=== PATIENT | female | born 1955 | race African-American/Black ===

== ENCOUNTER 2024-05-15 08:09 | Observation (INO) ==
--- NOTE | 2024-05-15 08:23 | Emergency Department Note ---
HPI - Chest Pain General Chief Complaint: Chest Pain Stated Complaint: chest pressure Time Seen by Provider: 05/15/24 08:18 Source: patient Mode of arrival: walk-in History of Present Illness HPI narrative: This is a 68 year old female patient that presents to the ER with c/o being diagnosed with COVID on 05/04/24 and has been on Levaquin and prednisone. Last night she states she started having chest pain. Patient denies any fever, chil ls, abdominal pain, SOB or N/V. Patient states she has a hx of blood clots. patient is not on blood thinners per patient and took ASA 81mg today complaint: Reports chest heaviness Onset (ago): hour(s) (24) Timing of current episode: Reports constant Onset: Reports during rest Pain location: Reports substernal Pain radiation: Reports none Severity: mild Quality: Reports tightness Relieving factors: Reports nothing Exacerbating factors: Reports nothing Context: Reports recent illness Associated symptoms: Reports cough Treatment prior to arrival: Reports none Risk Factors Coronary artery disease risk factors: Reports none Thoracic aortic dissection risk factors: Reports none Related Data Allergies Allergy/AdvReac Type Severity Reaction Status Date / Time hydralazine Allergy Mild Verified 05/15/24 08:23 morphine Allergy Unknown Verified 05/15/24 08:23 Review of Systems Status of ROS 10 or more systems reviewed and unremark able except as noted in history and below Constitutional Denies: fever, chills, change in weight, fatigue or malaise Eyes Denies: change in vision, blurry vision, blind spots, light sensitivity or eye discomfort Ears, nose, mouth, and throat Reports: nasal discharge and nasal congestion; Denies: throat pain, neck pain, throat swelling, difficulty swallowing or hoarseness Cardiovascular Reports: chest pain; Denies: palpitations, edema, swelling of feet/ankles, lightheadedness, shortness of breath with exertion or shortness of breath when lying down Respiratory Reports: cough; Denies: shortness of breath, wheezing, stridor, pain on inspiration or change in phlegm color Gastrointestinal Denies: abdominal pain, nausea, vomiting, coffee grounds in vomit, heartburn, diarrhea or constipation Genitourinary Denies: painful urination, urinary frequency, urinary urgency, urinary incontinence, blood in urine or difficulty voiding Musculoskeletal Denies: back pain, neck pain, extremity pain, extremity swelling, joint pain or limited range of motion Integumentary/Breast Denies: rash, itching, redness, skin pain, skin tenderness or skin swelling Neurological Denies: headache, numbness in extremities, weakness in extremities or lack of coordination Psychiatric Denies: anxiety, mood swings, panic attacks, change in sleep pattern or hopelessness Endocrine Denies: excessive urination, excessive thirst, fatigue or cold intolerance Hematologic/Lymphatic Denies: easy bruising, easy bleeding or enlarged lymph nodes Allergic/Immunologic Denies: hives, throat swelling or tongue swelling Exam Constitutional: normal general appearance and no apparent distress Vital Signs - 24 hr 05/15/24 08:15 05/15/24 08:54 05/15/24 09:03 Temperature 98.5 F Pulse Rate 88 81 Respiratory Rate 20 18 Blood Pressure 166/86 162/98 Pulse Oximetry 100 100 98 Oxygen Delivery Mt thod Room Air Room Air 05/15/24 09:57 Temperature Pulse Rate Respiratory Rate Blood Pressure 171/96 Pulse Oximetry Oxygen Delivery Mt thod HENMT: normocephalic, head/scalp atraumatic, hearing grossly normal bilaterally, external ears normal, nasal mucous membranes normal, external nose normal, oral mucous membranes normal and oropharynx normal nasal congestion Eyes: PERRL, EOMs intact bilaterally, conjunctivae normal and no scleral icterus Neck/C-Spine: visual inspection normal and trachea midline Lymph: no lymphadenopathy noted and no lymphedema noted Chest: inspection of chest normal Respiratory: breath sounds equal bilaterally, normal respiratory effort, clear to auscultation bilaterally, no wheezes, no rales, no retractions and no use of accessory muscles Cardiovascular: normal heart rate noted, regular rhythm noted, no gallop, no rub, no murmur, no JVD, no clicks, peripheral pulses 2+ throughout and no additional abnormal heart sounds Gastrointestinal: abdomen normal to inspection, abdomen soft to palpation, nontender to palpation, nontender to percussion, nondistended, normoactive bowel sounds, no hepatosplenomegaly, no masses, no pulsatile mass, no ascites and no hernia Genitourinary: no CVA tenderness Back/Pelvis: spine normal to inspection Extremities: normal to inspection, normal to palpation, no tenderness, full ROM, no joint enlargement and no deformity Neurology: no movement abnormality noted, no focal motor deficit noted, no sensory deficits noted, gait normal, speech normal, coordination normal, no pronator drift noted, no fasciculations noted and GCS normal Psychiatry: mental status grossly normal, oriented x3, thought process normal, cooperative, affect normal, psychomotor activity normal and memory normal Skin: skin color normal Course Course Hospital Course: 949: due to ongoing chest pain and risk factors will admit patient to the hospital for further evaluation and treatment Vital Signs Vital signs: Vital Signs Temperature 98.5 F 05/15/24 08:15 Pulse Rate 88 05/15/24 08:15 Respiratory Rate 20 05/15/24 08:15 Blood Pressure 166/86 05/15/24 08:15 Pulse Oximetry 100 05/15/24 08:15 Oxygen Delivery Method Room Air 05/15/24 08:15 Temperature 98.5 F 05/15/24 08:15 Pulse Rate 81 05/15/24 09:03 Respiratory Rate 18 05/15/24 09:03 Blood Pressure 171/96 05/15/24 09:57 Pulse Oximetry 98 05/15/24 09:03 Oxygen Delivery Method Room Air 05/15/24 08:54 MDM - Chest Pain Differential Diagnosis Differential diagnosis: Likely atypical chest pain Medical Records Data Attestation: I reviewed the patient's medical records. Lab Data Attestation: I reviewed the patient's lab results. Labs: Lab Results 05/15/24 Range/Units 08:45 WBC 4.6 (4.3-9.3) K/uL RBC 3.6 L (4.00-5.50) M/uL Hgb 10.7 L (12.5-15.8) gm/dL Hct 32.5 L (35.9-46.7) % MCV 89.7 (81.0-93.7) fl MCH 29.4 (27.6-32.2) pg MCHC 32.8 L (33.1-35.3) g/dl RDW 16.1 H (11.4-14.2) % Plt Count 422 H (152-353) K/uL MPV 7.6 (6.9-10.8) fl Gran % 54.6 (47.8-71.3) % Lymph % (Auto) 23.4 (20.0-43.0) % [place] % (Auto) 11.9 H (3.6-9.8) % Eos % (Auto) 9.0 H (0.4-2.8) % Baso % (Auto) 1.1 H (0.1-0.85) Lymph # (Auto) 1.1 (1.1-3.1) [place] # (Auto) 0.5 L (1.1-3.1) Eos # (Auto) 0.4 H (0.0-0.2) Baso # (Auto) 0.0 (0.0-0.1) Absolute Gran (auto) 2.5 (2.3-6.0) D-Dimer 577 (100-600) ng/mL Sodium 143 (136-145) mmol/L Potassium 4.3 (3.6-5.2) mmol/L Chloride 107.0 (98-107) mmol/L Carbon Dioxide 27 (21-32) mmol/L Anion Gap 9.0 (4-14) mEq/L BUN 21 H (7-18) mg/dL Creatinine 1.3 (0.6-1.3) mg/dL Estimated GFR 44.2 (>59.9) Glucose 100 (70-110) mg/dL Calcium 9.1 (8.5-10.1) mg/dL Total Bilirubin 0.59 (0.0-1.0) mg/dL AST 11 L (15-37) U/L ALT 28 L (30-65) U/L Alkaline Phosphatase 126 (50-136) U/L Troponin I High Sens 6.60 (4.0-60.4) ng/L Total Protein 6.1 L (6.4-8.2) g/dL Albumin 3.2 L (3.4-5.0) g/dL Imaging Data Imaging ordered: Chest x-ray Attestation: I have reviewed the pertinent imaging results. ECG Data Attestation: I have reviewed the pertinent ECG results. Discharge Plan Discharge Patient Disposition: Admitted As Observation Condition: Stable Clinical Impression: Chest pain Time of Disposition: 09:52 [facility] Medical History HTN (hypertension) TTP (thrombotic thrombocytopenic purpura) Surgical History (Updated 05/15/24 @ 08:52 by Carlotta Ellsworth RN) H/O: hysterectomy History of cholecystectomy Social History Smoking status: never smoker Problems where you live: no known problems
[2024-05-15 09:04] LABS: Potassium 4.3 mmol/L (3.6-5.2)
[2024-05-15 09:07] LABS: Basophils%(Percent) Auto 1.1 (0.1-0.85); Eosinophils#(Absolute)Auto 0.4 (0.0-0.2); Granulocytes % - Auto 54.6 % (47.8-71.3); Granulocytes#(Absolute)- Auto 2.5 (2.3-6.0); Hematocrit 32.5 % (35.9-46.7); Mean Corpuscular Volume 89.7 fl (81.0-93.7); Monocytes #(Absolute)- Auto 0.5 (1.1-3.1); Monocytes %(Percent)- Auto 11.9 % (3.6-9.8); Platelet Count 422 K/uL (152-353); White Blood Count 4.6 K/uL (4.3-9.3)
[2024-05-15] MEDS: NITROGLYCERIN 1 GM OINT...G. TD ONE (09:57)
[2024-05-15] MEDS: ASPIRIN 81 MG TAB.CHEW PO ONE (09:58)
[2024-05-15] MEDS ORDERED: ACETAMINOPHEN 325 MG TABLET PO PRN (13:00)
[2024-05-15] MEDS: POTASSIUM CHLORIDE 10 MEQ CAPSULE.ER PO ONE (23:37)
[2024-05-16 05:19] LABS: Basophils #(Absolute) Auto 0.1 (0.0-0.1); Basophils%(Percent) Auto 1.3 (0.1-0.85); Eosinophils#(Absolute)Auto 0.4 (0.0-0.2); Eosinophils%(Percent) Auto 7.7 % (0.4-2.8); Mean Corpuscular Volume 90.6 fl (81.0-93.7); Monocytes #(Absolute)- Auto 0.7 (1.1-3.1); Monocytes %(Percent)- Auto 12.5 % (3.6-9.8); Platelet Count 385 K/uL (152-353); White Blood Count 5.3 K/uL (4.3-9.3)
[2024-05-16 09:18] VITALS: RESP 16
[2024-05-16] MEDS: cloNIDine HCL 0.1 MG TABLET PO SCH (12:13)
[2024-05-16] MEDS: POTASSIUM CHLORIDE 10 MEQ CAPSULE.ER PO SCH (12:13)
[2024-05-16] MEDS: FUROSEMIDE 20 MG TABLET PO SCH (12:13)
[2024-05-16] MEDS: LABETALOL HCL 200 MG TABLET PO SCH (12:14)
[2024-05-16] MEDS: LABETALOL HCL 100 MG TABLET PO ONE (12:32)
[2024-05-16] MEDS ORDERED: GABAPENTIN 300 MG CAPSULE PO PRN (15:29)
[2024-05-16] MEDS ORDERED: DICLOFENAC SODIUM 100 GM GEL..GRAM. TOPICAL SCH (17:00)
[2024-05-16 17:22] VITALS: BP 140/70; PULSE 86; TEMP 98.2
[2024-05-16] MEDS ORDERED: LABETALOL HCL 200 MG TABLET PO SCH (21:00)
--- NOTE | 2024-05-17 01:34 | Progress Note ---
Progress Note: Subjective Subjective Interval history: PATIENT STATED THAT SHE IS NOT HAVING ANYMORE CHEST PAIN AND SHE NEEDS TO GO HOME TODAY. SHE ALSO STATED THAT HER MEDICATIONS FOR HER BP HAS NOT BEEN STARTED AND SHE TAKES SEVERAL MEDICATIONS FOR HER BP DUE TO BEING HARD TO CONTROL. SHE STATED THAT SHE WAS SEEN BY DR. PAIZ MANY YEARS AGO. SHE IS ASKING TO HAVE ALL OF HER MEDICATIONS BE GIVEN TO HER, ALL AT ONCE BECAUSE THAT IS HOW SHE TAKES IT AT HOME AROUND 9 AM. Exam Constitutional: normal general appearance, no apparent distress, average body habitus, no limitations and alert Vital Signs - 24 hr 05/16/24 03:31 05/16/24 08:00 05/16/24 08:00 Temperature 98.4 F 98.5 F 98.5 F Pulse Rate [Right] 78 85 85 Respiratory Rate 17 16 16 Blood Pressure Blood Pressure [Le ft Radial Artery] 115/79 155/87 155/87 Pulse Oximetry 96 98 98 Oxygen Delivery Me thod Room Air Room Air 05/16/24 12:00 05/16/24 12:13 05/16/24 12:13 Temperature 98.3 F Pulse Rate [Right] 93 H Respiratory Rate 16 Blood Pressure 155/74 155/74 Blood Pressure [Le ft Radial Artery] 182/98 Pulse Oximetry 100 Oxygen Delivery Me thod 05/16/24 12:14 05/16/24 16:00 Temperature 98.2 F Pulse Rate [Right] 86 Respiratory Rate 16 Blood Pressure 155/74 Blood Pressure [Le ft Radial Artery] 140/70 Pulse Oximetry 100 Oxygen Delivery Me thod HENMT: normocephalic, head/scalp atraumatic, hearing grossly normal bilaterally, external ears normal, nasal mucous membranes normal, oral mucous membranes normal, oropharynx normal and dentition normal Eyes: PERRL, EOMs intact bilaterally, conjunctivae normal, no scleral icterus, no papilledema and no nystagmus Neck/C-Spine: cervical spine nontender, cervical full ROM noted and supple Lymph: no lymphadenopathy noted and no lymphedema noted Chest: inspection of chest normal and palpation of chest normal Respiratory: breath sounds equal bilaterally, normal respiratory effort, clear to auscultation bilaterally, no wheezes, no rales, no retractions and no use of accessory muscles Cardiovascular: normal heart rate noted, regular rhythm noted, no gallop, no rub, no murmur, no JVD and no clicks Gastrointestinal: abdomen normal to inspection, abdomen soft to palpation, nontender to palpation, nontender to percussion, nondistended, normoactive bowel sounds, no hepatosplenomegaly and no masses Genitourinary: no CVA tenderness Back/Pelvis: spine normal to inspection, no thoracic spine tenderness, no lumbar spine tenderness, thoracic spine ROM normal and lumbar spine ROM normal Extremities: normal to inspection, normal to palpation, no tenderness, full ROM and no joint enlargement 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, no movement abnormality noted, no focal motor deficit noted, no sensory deficits noted, gait normal, speech normal and coordination normal Psychiatry: oriented x3, thought process normal, cooperative, affect normal, psychomotor activity normal and memory normal Feel stressed/tense/nervous/anxious/difficulty sleeping: not at all Due to disability, difficulty making decisions: No Skin: skin color normal, no rash, no lesions, no ecchymosis noted, no wounds, no lacerations, skin turgor normal, no jaundice, no petechiae, no mottling and nails normal Progress Note: Objective Labs Labs: CBC WBC 5.3 K/uL (4.3-9.3) 05/16/24 05:15 RBC 3.5 M/uL (4.00-5.50) L 05/16/24 05:15 Hgb 10.4 gm/dL (12.5-15.8) L 05/16/24 05:15 Hct 32.0 % (35.9-46.7) L 05/16/24 05:15 MCV 90.6 fl (81.0-93.7) 05/16/24 05:15 MCH 29.3 pg (27.6-32.2) 05/16/24 05:15 MCHC 32.4 g/dl (33.1-35.3) L 05/16/24 05:15 RDW 15.9 % (11.4-14.2) H 05/16/24 05:15 Plt Count 385 K/uL (152-353) H 05/16/24 05:15 MPV 7.5 fl (6.9-10.8) 05/16/24 05:15 Gran % 56.0 % (47.8-71.3) 05/16/24 05:15 Lymph % (Auto) 22.5 % (20.0-43.0) 05/16/24 05:15 [place] % (Auto) 12.5 % (3.6-9.8) H 05/16/24 05:15 Eos % (Auto) 7.7 % (0.4-2.8) H 05/16/24 05:15 Baso % (Auto) 1.3 (0.1-0.85) H 05/16/24 05:15 Lymph # (Auto) 1.2 (1.1-3.1) 05/16/24 05:15 [place] # (Auto) 0.7 (1.1-3.1) L 05/16/24 05:15 Eos # (Auto) 0.4 (0.0-0.2) H 05/16/24 05:15 Baso # (Auto) 0.1 (0.0-0.1) 05/16/24 05:15 Absolute Gran (auto) 3.0 (2.3-6.0) 05/16/24 05:15 BMP Sodium 140 mmol/L (136-145) 05/16/24 05:15 Potassium 4.0 mmol/L (3.6-5.2) 05/16/24 05:15 Chloride 106.0 mmol/L (98-107) 05/16/24 05:15 Carbon Dioxide 26 mmol/L (21-32) 05/16/24 05:15 Anion Gap 8.0 mEq/L (4-14) 05/16/24 05:15 BUN 18 mg/dL (7-18) 05/16/24 05:15 Creatinine 1.2 mg/dL (0.6-1.3) 05/16/24 05:15 Estimated GFR 48.7 (>59.9) 05/16/24 05:15 Glucose 93 mg/dL (70-110) 05/16/24 05:15 Calcium 8.9 mg/dL (8.5-10.1) 05/16/24 05:15 Phosphorus 3.4 mg/dL (2.5-4.9) 05/16/24 05:15 Magnesium 2.1 mg/dL (1.8-2.4) 05/16/24 05:15 Total Bilirubin 0.49 mg/dL (0.0-1.0) 05/16/24 05:15 AST 14 U/L (15-37) L 05/16/24 05:15 ALT 24 U/L (30-65) L 05/16/24 05:15 Alkaline Phosphatase 118 U/L (50-136) 05/16/24 05:15 Total Protein 5.5 g/dL (6.4-8.2) L 05/16/24 05:15 Albumin 2.8 g/dL (3.4-5.0) L 05/16/24 05:15 Cardiac Enzymes Troponin I High Sens 4.40 ng/L (4.0-60.4) 05/15/24 16:40 Liver Function Total Bilirubin 0.49 mg/dL (0.0-1.0) 05/16/24 05:15 AST 14 U/L (15-37) L 05/16/24 05:15 ALT 24 U/L (30-65) L 05/16/24 05:15 Alkaline Phosphatase 118 U/L (50-136) 05/16/24 05:15 Total Protein 5.5 g/dL (6.4-8.2) L 05/16/24 05:15 Albumin 2.8 g/dL (3.4-5.0) L 05/16/24 05:15 Progress Note: A&P Assessment and Plan (1) HTN (hypertension): Assessment and Plan: WILL GIVE SOME OF THE MEDICATIONS FOR HYPERTENSION WILL CHECK BP IN 2 HOURS AND IF ELEVATED WILL GIVE HE REST PATIENT WAS RULED OUT FOR [place] AND WILL BE DISCHARGE HOME TODAY SHE WILL F/U WITH PCP IN ONE WEEK SHE WILL NEED TO SEE HER TECHNICAL DELIVERY MANAGER FOR FURTHER WORK UP OF THIS CHEST PAIN SINCE SHE SHE HAS RISKS FACTORS Qualifiers: Hypertension type: primary hypertension Qualified Code(s): I10 - Essential (primary) hypertension (2) Chest pain: Assessment and Plan: PATIENT WAS RULED OUT FOR [place] AND WILL BE DISCHARGE HOME TODAY SHE WILL F/U WITH PCP IN ONE WEEK SHE WILL NEED TO SEE HER TECHNICAL DELIVERY MANAGER FOR FURTHER WORK UP OF THIS CHEST PAIN SINCE SHE SHE HAS RISKS FACTORS Qualifiers: Chest pain type: unspecified Qualified Code(s): R07.9 - Chest pain, unspecified Plan DISCHARGE HOME TODAY SHE WILL CONTINUE HER HOME MEDICATIONS PATIENT WILL FOLLOW UP WITH DR. LESLIE PATIENT IS TO MAKE AN APPOINTMENT WITH HIS TECHNICAL DELIVERY MANAGER Fall Risk Details Tai Fall Scale Risk Level: Moderate Fall Risk Time Spent With Patient Time: Total time spent is greater than 50% in coordination of care (as documented) at patient's floor/unit and/or counseling patient: Time with patient: 25 - 35 minutes
[2024-05-17] MEDS ORDERED: FOLIC ACID 1 MG TABLET PO SCH (09:00)
[2024-05-17] MEDS ORDERED: PANTOPRAZOLE SODIUM 40 MG TABLET.DR PO SCH (09:00)
[2024-05-17] MEDS ORDERED: ATORVASTATIN CALCIUM 10 MG TABLET PO SCH (09:00)
== END 2024-05-16 17:21 | disposition home or self-care (01) ==
LOC: MS 08:09 → ED 08:09 → MS 10:48
PROVIDERS: ADMIT Family Medicine; ATTEND Family Medicine
DX: I10 Essential (primary) hypertension; R07.89 Other chest pain